=== PATIENT | male | born 1990 | race Two or more races ===

== ENCOUNTER 2018-10-19 06:28 | Emergency (ER) | payer OTHER ==
[~2018-10-19] VITALS: Ht 170.2 cm; Wt 68.0 kg
--- NOTE | 2018-10-19 07:17 | NUR ---
Dr Pham at the bedside for MSE.
[2018-10-19] MEDS ORDERED: ALPRAZOLAM 0.5 MG TABLET ONE (07:33)
[2018-10-19 07:38] VITALS: BP 112/67
--- NOTE | 2018-10-19 07:41 | NUR ---
Patient discharged to home in stable conditon. Written and verbal after care instructions given. Patient verbalizes understanding of instructions. Pt walked out of ER w/ steady gait.
[2018-10-19] MEDS ORDERED: ALPRAZOLAM 0.25 MG TABLET PO ONE (07:45)
== END 2018-10-19 07:40 | disposition home or self-care (01) ==
LOC: ER 06:30
DX: F41.9 Anxiety disorder, unspecified (principal); F41.0 Panic disorder [episodic paroxysmal anxiety]; Z88.1 Allergy status to other antibiotic agents
CPT/HCPCS: A4663